=== PATIENT | male | born 1975 | race Caucasian/White ===

== ENCOUNTER 2021-02-23 13:30 | Emergency (ER) | payer MEDICAID, OTHER ==
[~2021-02-23] VITALS: Ht 190.5 cm; Wt 87.0 kg
--- NOTE | 2021-02-23 13:41 | NUR ---
PT BIBA FROM ALF FOR C/O SILVA AND BLURRED VISION. PT STATES HE HAS A HISTORY OF BRAIN BLEEDS AND CRANIOTOMY. PER LAW ENFORCEMENT, PT WAS SLAMMING HEAD INTO CEMENT WALL REPETITIVELY PRIOR TO ARRIVAL. PT CHANGED INTO GOWN, MONITORS IN PLACE. LAW ENFORCEMENT AT BS. VSS.
[2021-02-23] MEDS ORDERED: SODIUM CHLORIDE FLUSH 10ML SYR IVF ONE (14:00)
--- NOTE | 2021-02-23 14:06 | NUR ---
PT TO CT
--- NOTE | 2021-02-23 14:13 | NUR ---
PT BACK FROM [facility]. CONNECTED TO ALL MONITORS. LAW ENFORCEMENT AT BS
[2021-02-23] MEDS ORDERED: PLEASE ENTER ALLERGIES MC SCH (14:30)
[2021-02-23 14:54] LABS: BASOPHILS % (AUTO) 1 % (0-1); EOSINOPHILS % (AUTO) 1 % (1-7); LYMPHOCYTES % (AUTO) 41 % (22-44); MEAN CORPUSCULAR HEMOGLOBIN 30.6 pg (27.5-34.5); MEAN CORPUSCULAR HGB CONC 33.3 g/dL (33.2-36.2); MEAN PLATELET VOLUME 7.9 fL (7.4-10.4); MONOCYTES % (AUTO) 10 % (2-9); NEUTROPHILS % (AUTO) 47 % (42-75); PLATELET COUNT 333 x10^3/uL (130-400); RED BLOOD COUNT 4.43 x10^6/uL (4.38-5.82); RED CELL DISTRIBUTION WIDTH 14.9 % (9.4-14.8)
[2021-02-23 14:55] LABS: MD NO
[2021-02-23 15:09] LABS: ALANINE AMINOTRANSFERASE 60 U/L (12-78); ALBUMIN 3.6 g/dL (3.4-5.0); CALCIUM 8.8 mg/dL (8.5-10.1); CREATININE 0.92 mg/dL (0.7-1.3); INTERNATIONAL NORMALIZED RATIO 1.03 (0.93-1.1)
[2021-02-23 15:13] LABS: CHLORIDE 106 mmol/L (98-107)
[2021-02-23 15:14] LABS: ALKALINE PHOSPHATASE 58 U/L (45-117); ANION GAP 3 mmol/L (5-15); BILIRUBIN,TOTAL 0.3 mg/dL (0.2-1.0); TOTAL PROTEIN 7.2 g/dL (6.4-8.2)
[2021-02-23 15:45] VITALS: BP 143/94
--- NOTE | 2021-02-23 15:46 | NUR ---
PT CALMLY LAYING ON SUDHIR JONES/DAVY. PT STATES SILVA HAS DECREASED. LAW ENFORCEMENT AT BS. NO NEEDS AT THIS TIME
--- NOTE | 2021-02-23 16:27 | NUR ---
Patient given discharge instructions and they have confirmed that they understand the instructions. Patient ambulatory with steady gait.
== END 2021-02-23 16:39 | disposition home or self-care (01) ==
LOC: ED 15:00
DX: G44.311 Acute post-traumatic headache, intractable (principal); H53.8 Other visual disturbances
CPT/HCPCS: 36415; 70450; 80053; 84132; 85025; 85610; 85730; 99284